=== PATIENT | male | born 1930 | race Caucasian/White ===

== ENCOUNTER 2020-07-24 13:53 | Emergency (ER) | payer MEDICARE, OTHER ==
[2020-07-24] MEDS ORDERED: Sodium Chloride 0.9% 1000 ML 1,000 ML IV SCH (15:00)
[2020-07-24 15:03] LABS: BASOPHIL % 0.4 % (0.0-0.4); Basophil (Absolute #) 0.03 (0-0.4); Eosinophil % 1.3 % (0.00-5.0); Hematocrit 45.1 % (42-50); Hemoglobin 14.9 gm/dl (12.5-18.0); Lymphocyte (Absolute #) 2.96 (1.0-4.6); Lymphocytes % 38.5 % (24.0-44.0); Mean Cell Volume 94.4 fl (78-100); Mean Corpuscular Hemoglobin 31.2 pg (26-32); Monocytes % 9.1 % (0.0-12.0); Neutrophil % 50.7 % (36.0-66.0); Platelet Count 263 K/mm3 (150-450); Red Blood Count 4.78 M/mm3 (4.1-5.6); Red Cell Distribution Width 14.2 % (11.5-14.0); White Blood Count 7.7 K/mm3 (4.0-10.5)
[2020-07-24] MEDS ORDERED: Sodium Chloride 0.9% 1000 ML 1,000 ML ONE (15:12)
[2020-07-24 15:31] LABS: ALBUMIN 4.1 g/dL (3.5-5.0); ANION GAP 23.4 MEQ/L (5-15); BILIRUBIN,TOTAL 1.4 mg/dL (0.2-1.3); Calcium 9.6 mg/dL (8.4-10.2); Creatinine 1 1.97 mg/dL (0.66-1.25); EST GLOMERULAR FILTRATION RATE 34.3 ML/MIN; Potassium 4.2 mmol/L (3.5-5.1); Total Protein 7.2 g/dL (6.3-8.2)
[2020-07-24 16:00] LABS: MAGNESIUM 1.1 mg/dL (1.6-2.3)
--- NOTE | 2020-07-24 16:09 | ERPHSYRPT ---
- History of Present Illness Time Seen by Provider: 07/24/20 14:20 Patient Subjective Stated Complaint: Pt states "I have not been able to keep anything down for the past two days. This happens every now and then. It has to do with my rotator cuff being torn and causing issues with my spine. I need a steriod shot in my left shoulder but they will not do it. I really need fluds as well." Triage Nursing Assessment: Pt presented alert and oriented X 3, skin pwd Pt ambulates with an upright steady gait, able to speak in clear full sentences pt in no apparent respiratory distress. Pt able to move all extremeties. Physician History: Patient is an 89-year-old male presents to emergency department with complaints of nausea/vomiting and generalized weakness. He has been vomiting for the past 2 days. Patient attributes this to his left rotator cuff tear. Patient denies abdominal pain. No headache. No fever. No photophobia. No meningeal signs. Symptoms are mild to moderate in intensity. Symptoms are constant. No significant worsening or improving factors. Patient does admit to a 40 pound weight loss over the past 3 years. Son at bedside. They voices no other complaints concerns at this time. Timing/Duration: day(s) (2 days) Severity: moderate Modifying Factors: Improves With: nothing Associated Symptoms: nausea, vomiting, No abdominal pain, No shortness of breath, No heartburn, No diaphoresis, No cough, No chills, No chest pain, No fever, No headaches, No loss of appetite Allergies/Adverse Reactions: No Known Drug Allergies Allergy (Verified 07/24/20 14:24) Home Medications: Amlodipine Besylate 2.5 mg PO DAILY 07/24/20 [History] Atorvastatin Calcium [Lipitor] 40 mg PO DAILY 07/24/20 [History] Carvedilol 6.25 mg [Coreg 6.25 MG] 6.25 mg PO BID 07/24/20 [History] Chlorthalidone 25 mg PO DAILY 07/24/20 [History] Pantoprazole 40 mg [Protonix 40 mg IV] 40 mg IV DAILY 07/24/20 [History] Ramipril 5 mg [Altace 5 MG] 5 mg PO DAILY 07/24/20 [History] Hx Tetanus, Diphtheria Vaccination/Date Given: Yes Hx Influenza Vaccination/Date Given: Yes Hx Pneumococcal Vaccination/Date Given: Yes Immunizations Up to Date: Yes Travel Risk - International Travel Have you traveled outside of the country in past 3 weeks: No - Coronavirus Screening Are you exhibiting any of the following symptoms?: No Close contact with a COVID-19 positive Pt in past 14-21 Days: No - Vaccine Status Have you recieved a Covid-19 vaccination: No - Review of Systems Constitutional: No Symptoms, No Fever, No Chills Eyes: No Symptoms Ears, Nose, & Throat: No Symptoms Respiratory: No Symptoms, No Cough, No Dyspnea Cardiac: No Symptoms, No Chest Pain, No Edema, No Syncope Abdominal/Gastrointestinal: No Symptoms, No Abdominal Pain, No Nausea, No Vomiting, No Diarrhea Genitourinary Symptoms: No Symptoms, No Dysuria Musculoskeletal: No Symptoms, No Back Pain, No Neck Pain Skin: No Symptoms, No Rash Neurological: No Symptoms, No Dizziness, No Focal Weakness, No Sensory Changes Psychological: No Symptoms Endocrine: No Symptoms Hematologic/Lymphatic: No Symptoms Immunological/Allergic: No Symptoms All Other Systems: Reviewed and Negative - Past Medical History Pertinent Past Medical History: Yes Neurological History: No Pertinent History ENT History: No Pertinent History Cardiac History: Coronary Artery Disease, High Cholesterol, Hypertension Respiratory History: No Pertinent History Endocrine Medical History: No Pertinent History Musculoskeletal History: Arthritis GI Medical History: GERD History: No Pertinent History Psycho-Social History: No Pertinent History Male Reproductive Disorders: No Pertinent History - Past Surgical History Past Surgical History: Yes Other Surgical History: left shoulder. open heart. bilat knee. right elbow. rosa - Social History Smoking Status: Never smoker Exposure to second hand smoke: No Drug Use: none Patient Lives Alone: Yes - Nursing Vital Signs Nursing Vital Signs: Initial Vital Signs Temperature 98.5 F 07/24/20 14:16 Pulse Rate 97 H 07/24/20 14:16 Respiratory Rate 20 07/24/20 14:16 Blood Pressure 155/102 07/24/20 14:16 O2 Sat by Pulse Oximetry 98 07/24/20 14:16 Pain Scale Pain Intensity 0 - Physical Exam General Appearance: no apparent distress, alert, cachetic Eye Exam: PERRL/EOMI, eyes nml inspection Ears, Nose, Throat Exam: normal ENT inspection, TMs normal, pharynx normal, moist mucous membranes, other (Dry oral mucous membranes) Neck Exam: normal inspection, non-tender, supple, full range of motion Respiratory Exam: normal breath sounds, lungs clear, No respiratory distress Cardiovascular Exam: regular rate/rhythm, normal heart sounds, normal peripheral pulses Gastrointestinal/Abdomen Exam: soft, normal bowel sounds, No tenderness, No mass Back Exam: normal inspection, normal range of motion, No CVA tenderness, No vertebral tenderness Extremity Exam: normal inspection, normal range of motion, pelvis stable Neurologic Exam: alert, oriented x 3, cooperative, normal mood/affect, nml cerebellar function, nml station & gait, sensation nml, No motor deficits Skin Exam: normal color, warm, dry, No rash Lymphatic Exam: No adenopathy SpO2 Interpretation: normal SpO2: 98 O2 Delivery: Room Air - Course Nursing assessment & vital signs reviewed: Yes EKG Interpreted by Me: RATE (76), Sinus Rhythm, NORMAL AXIS, NORMAL INTERVALS - Radiology Exams Chest X-ray Interpretation: Teleradiologist Report (Portable chest hyperinflated and clear with incidental tiny calcified granulomas. 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 Bony thorax intact with mild osteopenia and left shoulder arthroplasty. Nonacute hyperinflated chest with chronic features.) - CT Exams Head CT Interpretation: Tele-radiologist Report (For intracranial hemorrhage or mass- effect.) Ordered Tests: Active Orders 24 hr Category Date Time Status Dispensing Lead STAT Care 07/24/20 14:56 Active EKG-ER Only STAT Care 07/24/20 14:55 Active IV Insertion STAT Care 07/24/20 14:55 Active Pulse Oximetry (ED) STAT Care 07/24/20 14:55 Active CHEST 1 VIEW (PORTABLE) Routine Exams 07/24/20 16:12 Taken HEAD WITHOUT CONTRAST [CT] Stat Exams 07/24/20 21:28 Taken CBC W DIFF Stat Lab 07/24/20 15:00 Completed CMP Stat Lab 07/24/20 15:00 Completed MAGNESIUM Stat Lab 07/24/20 15:00 Completed NT PRO BNP Stat Lab 07/24/20 15:00 Completed TROPONIN Q3H Lab 07/24/20 15:00 Completed TROPONIN Q3H Lab 07/24/20 18:12 Completed TROPONIN Q3H Lab 07/24/20 21:28 Completed TROPONIN Q3H Lab 07/25/20 00:00 Ordered TROPONIN Q3H Lab 07/25/20 03:00 Ordered Urine Triage Profile Stat Lab 07/24/20 20:21 Completed Medication Summary Generic Name Dose Route Start Last Admin Trade Name Hoa PRN Reason Stop Dose Admin Sodium Chloride 1,000 mls @ 100 mls/hr 07/24/20 15:00 07/24/20 15:13 Sodium Chloride 0.9% 1000 Ml IV 08/23/20 14:59 100 mls/hr .Q10H JOSE Administration Magnesium Sulfate/Dextrose 100 mls @ 100 mls/hr 07/24/20 16:45 07/24/20 21:38 Magnesium 1 Gm / 100 Ml D5w IV 07/24/20 18:44 100 mls/hr Q1H JOSE Administration Lab/Rad Data: Laboratory Result Diagrams 07/24/20 15:00 07/24/20 15:00 Laboratory Results 07/24/20 07/24/20 07/24/20 Range/Units 21:28 20:21 18:12 WBC (4.0-10.5) K/mm3 RBC (4.1-5.6) M/mm3 Hgb (12.5-18.0) gm/dl Hct (42-50) % MCV (78-100) fl MCH (26-32) pg MCHC (32-36) g/dl RDW (11.5-14.0) % Plt Count (150-450) K/mm3 MPV (7.5-11.0) fl Gran % (36.0-66.0) % Eos # (Auto) (0-0.5) Absolute Lymphs (auto) (1.0-4.6) Absolute Monos (auto) (0.0-1.3) Lymphocytes % (24.0-44.0) % Monocytes % (0.0-12.0) % Eosinophils % (0.00-5.0) % Basophils % (0.0-0.4) % Absolute Granulocytes (1.4-6.9) Basophils # (0-0.4) Sodium (137-145) mmol/L Potassium (3.5-5.1) mmol/L Chloride (98-107) mmol/L Carbon Dioxide (22-30) mmol/L Anion Gap (5-15) MEQ/L BUN (9-20) mg/dL Creatinine (0.66-1.25) mg/dL Estimated GFR ML/MIN Glucose (74-106) mg/dL Calcium (8.4-10.2) mg/dL Magnesium (1.6-2.3) mg/dL Total Bilirubin (0.2-1.3) mg/dL AST (17-59) U/L ALT (0-50) U/L Alkaline Phosphatase (38-126) U/L Troponin I 0.020 0.017 (0.000-0.034) ng/mL NT-Pro-B Natriuret Pep (0-1800) pg/mL Serum Total Protein (6.3-8.2) g/dL Albumin (3.5-5.0) g/dL Urine Opiates Level POSITIVE (NEGATIVE) Ur Methadone NEGATIVE (NEGATIVE) Urine Barbiturates NEGATIVE (NEGATIVE) Ur Phencyclidine (PCP) NEGATIVE (NEGATIVE) Urine Amphetamine NEGATIVE (NEGATIVE) U Benzodiazepine Level NEGATIVE (NEGATIVE) Urine Cocaine NEGATIVE (NEGATIVE) Urine Marijuana (THC) NEGATIVE (NEGATIVE) 07/24/20 07/24/20 07/24/20 Range/Units 15:00 15:00 15:00 WBC 7.7 (4.0-10.5) K/mm3 RBC 4.78 (4.1-5.6) M/mm3 Hgb 14.9 (12.5-18.0) gm/dl Hct 45.1 (42-50) % MCV 94.4 (78-100) fl MCH 31.2 (26-32) pg MCHC 33.0 (32-36) g/dl RDW 14.2 H (11.5-14.0) % Plt Count 263 (150-450) K/mm3 MPV 11.0 (7.5-11.0) fl Gran % 50.7 (36.0-66.0) % Eos # (Auto) 0.10 (0-0.5) Absolute Lymphs (auto) 2.96 (1.0-4.6) Absolute Monos (auto) 0.70 (0.0-1.3) Lymphocytes % 38.5 (24.0-44.0) % Monocytes % 9.1 (0.0-12.0) % Eosinophils % 1.3 (0.00-5.0) % Basophils % 0.4 (0.0-0.4) % Absolute Granulocytes 3.90 (1.4-6.9) Basophils # 0.03 (0-0.4) Sodium 136 L (137-145) mmol/L Potassium 4.2 (3.5-5.1) mmol/L Chloride 99 (98-107) mmol/L Carbon Dioxide 18 L (22-30) mmol/L Anion Gap 23.4 H (5-15) MEQ/L BUN 32 H (9-20) mg/dL Creatinine 1.97 H (0.66-1.25) mg/dL Estimated GFR 34.3 ML/MIN Glucose 65 L (74-106) mg/dL Calcium 9.6 (8.4-10.2) mg/dL Magnesium 1.1 L (1.6-2.3) mg/dL Total Bilirubin 1.40 H (0.2-1.3) mg/dL AST 47 (17-59) U/L ALT 20 (0-50) U/L Alkaline Phosphatase 68 (38-126) U/L Troponin I 0.018 (0.000-0.034) ng/mL NT-Pro-B Natriuret Pep 779 (0-1800) pg/mL Serum Total Protein 7.2 (6.3-8.2) g/dL Albumin 4.1 (3.5-5.0) g/dL Urine Opiates Level (NEGATIVE) Ur Methadone (NEGATIVE) Urine Barbiturates (NEGATIVE) Ur Phencyclidine (PCP) (NEGATIVE) Urine Amphetamine (NEGATIVE) U Benzodiazepine Level (NEGATIVE) Urine Cocaine (NEGATIVE) Urine Marijuana (THC) (NEGATIVE) - Progress Progress: improved Progress Note: Patient reassessed. No acute changes. Patient has of about a 40 pound weight loss that occurred over the last several years. Magnesium was 1.1. Patient received 2 g of magnesium sulfate. Renal function compromise. There are no old labs for comparison. Case discussed with Dr. Austin. Patient will likely require renal consultation. We will transfer patient for renal consultation. Case discussed with Dr. Diaz ED physician at [facility] who accepts transfer. Dr. Diaz requested a CT head due to generalized weakness. 07/24/20 21:52 07/24/20 21:53 07/24/20 22:46 CT head resulted as negative for acute intracranial process. Discussed with : Chris Will see patient in: other Counseled pt/family regarding: lab results, diagnosis, rad results - Departure Departure Disposition: Transfer Clinical Impression: Cachectic, Dehydration, Acute renal injury, Hypomagnesemia, Generalized weakness Condition: Stable Critical Care Time: No Referrals: SLICK NAVA [Primary Care Provider] -
[2020-07-24 20:44] LABS: Amphetamine,Urine NEGATIVE (NEGATIVE); Barbiturate,Urine NEGATIVE (NEGATIVE); Benzodiazepine,Urine NEGATIVE (NEGATIVE); Cocaine,Urine NEGATIVE (NEGATIVE); Methadone,Urine NEGATIVE (NEGATIVE); Opiate,Urine POSITIVE (NEGATIVE); PCP,Urine NEGATIVE (NEGATIVE); THC,Urine NEGATIVE (NEGATIVE)
[2020-07-24] MEDS ORDERED: Magnesium 1 Gm / 100 Ml D5W*** 100 ML IV ONE ×2 (20:50→21:37)
[2020-07-24] MEDS: Magnesium 1 Gm / 100 Ml D5W*** 100 ML IV SCH ×2 (20:51→21:38)
[2020-07-24 21:17] VITALS: O2SAT 98
[2020-07-24 23:15] VITALS: BP 126/84; PULSE 82
[2020-07-25 01:53] LABS: Appearance CLEAR (CLEAR); Bilirubin NEGATIVE (NEGATIVE); Blood NEGATIVE Ery/ul (0-5); Glucose NEGATIVE (NEGATIVE); Ketones MODERATE (NEGATIVE); Leukocyte Esterase NEGATIVE (NEGATIVE); Mucus SLIGHT /HPF (NEGATIVE); Nitrite NEGATIVE (NEGATIVE); Protein,Urine Dip NEGATIVE (Negative); Specific Gravity 1.015 (1.005-1.025); Urobilinogen NEGATIVE mg/dL (0-1)
--- NOTE | 2020-07-25 08:38 | XRAY ---
Indication: Hypertension and weakness. Multiple contiguous axial images obtained through the head without contrast. Comparison: None Age-appropriate global atrophy and minimal periventricular degenerative micro-ischemia bilaterally. No acute intracranial hemorrhage, abnormal extra-axial fluid collection, or mass effect. Fourth ventricle is midline without hydrocephalus. Bony calvarium intact. Visualized paranasal sinuses and mastoid air cells are clear. Impression: Nonacute senile brain. Comment: Preliminary interpretation was made by [facility]. No critical discrepancy.
--- NOTE | 2020-07-25 11:15 | XRAY ---
Indication: Syncope. Vomiting. Comparison: None Portable chest hyperinflated and clear with incidental tiny calcified granulomas. Heart not enlarged with CABG surgery and tortuous descending aorta. Bony thorax intact with mild osteopenia and left shoulder arthroplasty. Impression: Nonacute hyperinflated chest with chronic features.
== END 2020-07-24 23:16 | disposition short-term general hospital (02) ==
LOC: ED 13:53
DX: E86.0 Dehydration (principal); N17.9 Acute kidney failure, unspecified; E83.42 Hypomagnesemia; R53.1 Weakness; Z79.899 Other long term (current) drug therapy; E78.00 Pure hypercholesterolemia, unspecified
CPT/HCPCS: 36000; 36415; 70450; 71045; 80053; 80307; 81001; 83735; 83880; 84484; 85025; 93005; 93041; 94760; 96360; 96365; 96366; 99285; J3475